=== PATIENT | male | born 1995 | race Caucasian/White ===

== ENCOUNTER 2017-02-17 16:18 | Emergency (ER) | payer MEDICAID, OTHER ==
[2017-02-17 16:31] VITALS: BMI 17.7
[2017-02-17 16:35] VITALS: TEMP 98.2
[2017-02-17] MEDS ORDERED: cefTRIAXone (Rocephin) 250 mg Inj IM STA (16:55)
--- NOTE | 2017-02-17 16:59 | ED PDOC ---
Arrival/HPI - General Historian: Patient - History of Present Illness Time/Duration: Other (see hpi) Context: Home - General Chief Complaint: Male Genitourinary Time Seen by Provider: 02/17/17 16:54 - History of Present Illness Narrative History of Present Illness (Text): 02/17/17 16:56 This 21 yo male presents to this ED c/o dysuria x 2 week, and penile discharge x 4 days. Patient thinks he has gonorrhea. Patient admits having 2 sexual female partners. Patient does not wear condoms. Patient had notified her girlfriends regarding his symptoms. Patient denies other complains. (Leila Regalado) Past Medical History - Provider Review Nursing Documentation Reviewed: Yes - Infectious Disease Hx of Infectious Diseases: None - Reproductive Currently : No - Pulmonary Hx Asthma: Yes - Psychiatric Hx Substance Use: No Family/Social History - Physician Review Nursing Documentation Reviewed: Yes Family/Social History: Other (non-contributory) Smoking Status: Current Some Days Smoker Hx Alcohol Use: No Hx Substance Use: No Allergies/Home Meds Allergies/Adverse Reactions: Allergies shellfish derived Allergy (Verified 02/17/17 16:31) ANAPHYLAXIS Home Medications: Home Meds Medication Instructions Recorded Confirmed No Known Home Med 02/17/17 02/17/17 Review of Systems - Review of Systems Constitutional: Normal. absent: Fatigue, Weight Change, Fevers, Night Sweats Eyes: Normal ENT: Normal Respiratory: Normal. absent: SOB, Cough Cardiovascular: Normal. absent: Chest Pain, Palpitations Gastrointestinal: Normal. absent: Abdominal Pain, Nausea, Vomiting Genitourinary Male: Dysuria, Other (see hpi). absent: Frequency, Hematuria Musculoskeletal: Normal Skin: Normal Neurological: Normal Endocrine: Normal Hemo/Lymphatic: Normal Psychiatric: Normal Physical Exam Temperature: Afebrile Blood Pressure: Normal Pulse: Regular Respiratory Rate: Normal Appearance: Positive for: Well-Appearing, Non-Toxic, Comfortable Pain Distress: None Mental Status: Positive for: Alert and Oriented X 3 - Systems Exam Head: Present: Atraumatic, Normocephalic Pupils: Present: PERRL Extroacular Muscles: Present: EOMI Conjunctiva: Present: Normal Mouth: Present: Moist Mucous Membranes Neck: Present: Normal Range of Motion Genitourinary Male: Present: Normal External Genitalia, Circumcised Penis, Penile Discharge (clear discharge), Other (No inguinal adenopathy). No: Lesions , Testicle Tenderness, Penile Swelling, Masses, Erythema, Hernias, Testicle Swelling Back: Present: Normal Inspection. No: CVA Tenderness Upper Extremity: Present: Normal Inspection, Normal ROM, Neurovascularly Intact , Capillary Refill < 2s Lower Extremity: Present: Normal Inspection, Normal ROM, Neurovascularly Intact , Capillary Refill < 2 s Neurological: Present: GCS=15, CN II-XII Intact, Speech Normal, Motor Func Grossly Intact, Normal Sensory Function, Normal Cerebellar Funct, Gait Normal, Memory Normal Skin: Present: Warm, Dry, Normal Color. No: Rashes Psychiatric: Present: Alert, Oriented x 3, Normal Insight, Normal Concentration Medical Decision Making Re-evaluation Time: 17:00 Reassessment Condition: Re-examined, Improved ED Course and Treatment: 02/17/17 17:00 Re-evaluation. Patient feels better. Discussed results and plan with patient who expresses understanding. All questions answered and there is agreement with the plan to discharge home with instructions. Patient stable for discharge. Return if symptoms persist or worsen. (Leila Regalado) I was available for consultation during PA evaluation. The chart was reviewed by me, and I agree with disposition. The documented history was done by the physician filter tip catcher. The documented procedures were done by the physician filter tip catcher. (Dez Manzo) - Medication Orders Current Medication Orders: Discontinued Medications Azithromycin (Zithromax) 1,000 mg PO STAT STA PRN Reason: Protocol Stop: 02/17/17 16:56 Ceftriaxone Sodium (Rocephin) 250 mg IM STAT STA PRN Reason: Protocol Stop: 02/17/17 16:56 Disposition/Present on Arrival - Present on Arrival Any Indicators Present on Arrival: No History of DVT/PE: No History of Uncontrolled Diabetes: No Urinary Catheter: No History of Decub. Ulcer: No History Surgical Site Infection Following: None - Disposition Have Diagnosis and Disposition been Completed?: Yes Disposition Time: 17:01 Patient Plan: Discharge - Disposition Diagnosis: Urethritis, nonspecific Disposition: HOME/ ROUTINE Condition: GOOD Discharge Instructions (ExitCare): Nonspecific Urethritis in Men (ED) Additional Instructions: Call private doctor for follow up visit in 1-2 days. Return to emergency if symptoms worsen. Make sure to review result for std in 3-5 days with your doctor. If test is positive, have your doctor repeat test in 4 weeks. Referrals: [facility] [Outside] - Follow up with primary [facility] [Outside] - Follow up with primary Forms: [employer] (Croatian)
[2017-02-17 17:49] VITALS: BP 115/80; PULSE 92; RESP 17; O2SAT 99
== END 2017-02-17 17:48 | disposition home or self-care (01) ==
LOC: MERGE 16:18 → ED 16:18
DX: N34.2 Other urethritis (principal)
CPT/HCPCS: 87491; 87591; 96372; 99284; J0696

== ENCOUNTER 2018-04-01 19:08 | Emergency (ER) | payer SELFPAY ==
[2018-04-01 19:09] VITALS: BMI 17.7
[2018-04-01 19:34] VITALS: RESP 18
[2018-04-01] MEDS ORDERED: cefTRIAXone (Rocephin) 250 mg Inj IM STA (20:16)
--- NOTE | 2018-04-01 20:47 | ED PDOC ---
Arrival/HPI - General Chief Complaint: Male Genitourinary Time Seen by Provider: 04/01/18 20:13 Historian: Patient - History of Present Illness Narrative History of Present Illness (Text): 04/01/18 20:48 22yr old male presents today with a 1 week history of penile discharge. pt states he is having yellow discharge and occasionally feeling pain in the testicle if he waits too long to urinate. pt denies any pain at present time. pt with hx of unprotected sex. no fever/chills. no abdominal pain. no n/v/d/c. no dizziness or weakness. no other complaints. Time/Duration: 1 week Symptom Onset: Gradual Symptom Course: Unchanged Past Medical History - Provider Review Nursing Documentation Reviewed: Yes - Travel History Have you recently traveled outside [place] w/in the past 3 mons?: No - Infectious Disease Hx of Infectious Diseases: None - Tetanus Immunization Tetanus Immunization: Unknown - Pulmonary Hx Asthma: Yes - Psychiatric Hx Substance Use: No Family/Social History - Physician Review Nursing Documentation Reviewed: Yes Family/Social History: Unknown Family HX Smoking Status: Current Some Days Smoker Hx Alcohol Use: No Hx Substance Use: No Allergies/Home Meds Allergies/Adverse Reactions: Allergies shellfish derived Allergy (Verified 04/01/18 19:26) ANAPHYLAXIS Home Medications: Home Meds Medication Instructions Recorded Confirmed No Known Home Med 02/17/17 04/01/18 Review of Systems - Review of Systems Constitutional: absent: Fatigue, Fevers Respiratory: absent: SOB, Cough Cardiovascular: absent: Chest Pain, Palpitations Gastrointestinal: absent: Abdominal Pain, Constipation, Diarrhea, Nausea, Vomiting Genitourinary Male: Dysuria, Other (penile discharge). absent: Frequency, Hematuria, Urinary Output Changes Musculoskeletal: absent: Arthralgias, Back Pain, Neck Pain Skin: absent: Rash, Pruritis Neurological: absent: Headache, Dizziness Psychiatric: absent: Anxiety, Depression Physical Exam Vital Signs Reviewed: Yes Vital Signs Temp Pulse Resp BP Pulse Ox 04/01/18 19:27 98.3 F 64 18 113/76 99 Temperature: Afebrile Blood Pressure: Normal Pulse: Regular Respiratory Rate: Normal Appearance: Positive for: Well-Appearing, Non-Toxic, Comfortable Pain Distress: None Mental Status: Positive for: Alert and Oriented X 3 - Systems Exam Head: Present: Atraumatic Mouth: Present: Moist Mucous Membranes Neck: Present: Normal Range of Motion Respiratory/Chest: Present: Clear to Auscultation, Good Air Exchange. No: Respiratory Distress, Accessory Muscle Use Cardiovascular: Present: Regular Rate and Rhythm, Normal S1, S2. No: Murmurs Abdomen: No: Tenderness, Distention, Peritoneal Signs, Rebound, Guarding Genitourinary Male: Present: Normal External Genitalia, Circumcised Penis, Penile Discharge (clear discharge noted), Other (chaparoned by Jayden; er patient liason. ). No: Lesions, Testicle Tenderness, Penile Swelling, Masses, Erythema, Hernias, Testicle Swelling Back: Present: Normal Inspection Neurological: Present: GCS=15, Speech Normal Skin: Present: Warm, Dry, Normal Color. No: Rashes Psychiatric: Present: Alert, Oriented x 3 Medical Decision Making ED Course and Treatment: 04/01/18 20:52 Patient is nontoxic well-appearing in no distress with stable vital signs Ceftriaxone 250 mg IM Zithromax 1 g p.o. given Gonorrhea and Chlamydia cultures are pending. Advised patient to refrain from sex for 10 days followup with the primary care physician within the next 2 days or return if symptoms worsen persist or if new symptoms develop. pt verbalized understanding of D/C instructions and need for f/u. Impression: Urethritis Follow up primary care physician within the next 2 days Return if symptoms worsen persist or if new symptoms develop. - Medication Orders Current Medication Orders: Discontinued Medications Azithromycin (Zithromax) 1,000 mg PO STAT STA; Protocol Stop: 04/01/18 20:17 Ceftriaxone Sodium (Rocephin) 250 mg IM STAT STA; Protocol Stop: 04/01/18 20:17 Disposition/Present on Arrival - Present on Arrival Any Indicators Present on Arrival: No History of DVT/PE: No History of Uncontrolled Diabetes: No Urinary Catheter: No History of Decub. Ulcer: No History Surgical Site Infection Following: None - Disposition Have Diagnosis and Disposition been Completed?: Yes Diagnosis: Penile discharge, Urethritis Disposition: HOME/ ROUTINE Disposition Time: 20:20 Patient Plan: Discharge Condition: GOOD Discharge Instructions (ExitCare): Urethritis Additional Instructions: Follow up primary care physician within the next 2 days Return if symptoms worsen persist or if new symptoms develop. Referrals: Pamela Jimenez MD [Medical Doctor] - Follow up with primary [employer] [facility] [Outside] - Follow up with primary
[2018-04-01 20:58] VITALS: BP 118/78; PULSE 66; TEMP 98.4; O2SAT 100
== END 2018-04-01 20:58 | disposition home or self-care (01) ==
LOC: ED 19:08
DX: N34.2 Other urethritis (principal); R36.9 Urethral discharge, unspecified
CPT/HCPCS: 87491; 87591; 96372; 99283; J0696